=== PATIENT | female | born 1965 | race Caucasian/White ===

== ENCOUNTER → 2019-02-04 | Outpatient (CLI) | payer BC ==
--- NOTE | 2019-02-04 14:53 | KCIC ---
EXAM: Chest, 2 views; right ribs, 3 views. HISTORY: Pain. COMPARISON: None. FINDINGS: 2 views of the chest and 3 views the right ribs are obtained. There is no infiltrate, pleural effusion or pneumothorax. There is minimal blunting of the right costophrenic angle in the frontal projection likely due to slight basilar pleural thickening. No displaced rib fracture is seen. IMPRESSION: No acute pulmonary or osseous finding. Electronically signed by: Grisel Harris MD (02/04/2019 2:49 PM) [place] [id number]
== END | disposition home or self-care (01) ==
LOC: KCIC 13:56
PROVIDERS: ATTEND Family Medicine
DX: R07.81 Pleurodynia (principal); R05 Cough
CPT/HCPCS: 71046; 71100